=== PATIENT | female | born 1990 | race Two or more races ===

== ENCOUNTER 2024-01-09 21:43 | Emergency (ER) | payer OTHER ==
[~2024-01-09] VITALS: Ht 160 cm; Wt 61.2 kg
[~2024-01-09 21:43] MED LIST: CLARITIN-D1 TAB.SR1 PO; INTESTINEX680 MG PO; KEFLEX500 MG PO; PEPCID20 MG PO; PERCOCET 5/3251 TAB PO; PROTONIX40 MG PO; SULFAMETHOXAZOL1 TA6 PO; ULTRACET PO; URIN D.S. TABLE1 TAB PO; XOPENEX0.63 MG/3 IH; ZANTAC300 MG PO
[2024-01-10] MEDS ORDERED: KETOROLAC TROMETHAMINE 60 MG VIAL IM STA (02:16)
[2024-01-10 03:09] LABS: HEMATOCRIT 43.8 % (36.0-45.00); HEMOGLOBIN 15.1 g/dL (12.0-15.00); MEAN CELL VOLUME 93.5 fL (80.00-100.00); MEAN CORPUSCULAR HEMOGLOBIN 32.3 pg (27.00-32.0); MEAN CORPUSCULAR HGB CONC 34.5 g/dl (32.0-36.0); PLATELET COUNT 237 K/uL (150-450); RED BLOOD COUNT 4.68 M/uL (4.00-6.00); RED CELL DISTRIBUTION WIDTH 12.2 % (11.5-14.5)
[2024-01-10 03:27] LABS: PH,URINE 5.5 (5.0-8.0); URINE APPEARANCE Clear; URINE BILIRRUBIN Negative (NEGATIVE); URINE BLOOD Negative; URINE COLOR Yellow; URINE GLUCOSE Negative (NEGATIVE); URINE KETONE 15 (NEGATIVE); URINE LEUKOCYTE Trace; URINE NITRATE Negative; URINE PROTEIN Negative (NEGATIVE)
[2024-01-10 03:28] LABS: URINE BACTERIA 16.3 uL (0.0-1933); URINE EPITHELIAL CELLS 2.4 uL (0.0-38.8); URINE WBC 9.8 uL (0.0-23.2)
[2024-01-10 03:31] LABS: ANION GAP 12 (10.0-20.0); BLOOD UREA NITROGEN 12 mg/dL (7-18); BUN CREA RATIO 15 (7.0-25.0); CALCIUM 10.5 mg/dL (8.5-10.1); CARBON DIOXIDE 25 mEq/L (21-32); CHLORIDE 105 mmol/L (98-107); CREATININE SERUM 0.79 mg/dL (0.55-1.02); GFR 82.82; GLUCOSE FASTING 96 mg/dL (65-100); OSMOLALITY SERUM 277 MOSM/KG (275-295); POTASSIUM 3.41 mEq/L (3.5-5.1); SODIUM 139 mmol/L (136-145)
[2024-01-10 03:39] LABS: URINE CAST 0.15 uL (0.0-1.40); URINE RBC 1.6 uL (0.0-20.8)
[2024-01-10 04:11] LABS: HCG QUANTITATIVE < 1 mUI/mL (1-3)
[2024-01-10] MEDS ORDERED: ORPHENADRINE CITRATE 30 MG/ML AMPUL IV STA (06:49)
[2024-01-10] MEDS ORDERED: CIPROFLOXACIN IN 5 % DEXTROSE 400 MG/200 ML PIGGYBAG IV STA (06:51)
[2024-01-10] MEDS ORDERED: MECLIZINE HCL 25 MG TABLET PO ONE (09:15)
[2024-01-10] MEDS ORDERED: TAMSULOSIN HCL 0.4 MG CAP PO ONE (09:15)
== END 2024-01-10 10:29 | disposition home or self-care (01) ==
LOC: ER 21:45
PROVIDERS: General Practice
DX: N20.1 Calculus of ureter (principal); R35.89 Other polyuria; R10.9 Unspecified abdominal pain

== ENCOUNTER 2024-08-09 07:05 | Day surgery (SDC) | payer OTHER ==
[2024-08-01 15:05] LABS: BASO % 0.6 % (0.1-1.2); EOS # 0.10 (0.04-0.54); EOS % 1.6 % (0.7-7.0); LYMPH # 1.74 (1.18-3.74); LYMPH % 27.1 % (19.3-53.1); MEAN PLATELET VOLUME 12.50 fl (9.4-12.4); MONO # 0.42 (0.24-0.82); MONO % 6.6 % (4.7-12.5); NEUT # 4.10 (1.56-6.13); NEUT % 63.9 % (34.0-71.1); RED CELL DISTRIBUTION WIDTH 11.9 % (11.6-14.4)
[2024-08-01 15:07] LABS: URINE APPEARANCE Clear; URINE BACTERIA 22.0 uL (0.0-1933); URINE BILIRRUBIN Negative (NEGATIVE); URINE BLOOD Negative; URINE COLOR Yellow; URINE EPITHELIAL CELLS 3.3 uL (0.0-38.8); URINE GLUCOSE Negative (NEGATIVE); URINE KETONE Trace (NEGATIVE); URINE LEUKOCYTE Negative; URINE NITRATE Negative; URINE PROTEIN Negative (NEGATIVE); URINE UROBILINOGEN 0.2 E.U./dl; URINE WBC 4.4 uL (0.0-23.2)
[2024-08-01 15:29] LABS: INR 0.98
[2024-08-01 15:35] LABS: URINE CAST 0.14 uL (0.0-1.40); URINE RBC 1.0 uL (0.0-20.8)
[2024-08-01 15:49] LABS: ALT/SGPT 20.0 U/L (12-78); AST/SGOT 12.0 U/L (15-37); BILIRUBIN TOTAL 1.01 mg/dL (0.3-1.2); BUN CREA RATIO 15.0 (7.0-25.0); CREATININE SERUM 0.61 mg/dL (0.55-1.02); GFR 111.61; GLOBULINA 3.1 G/DL (2.4-3.5); GLUCOSE FASTING 90.0 mg/dL (65-100); OSMOLALITY SERUM 281.0 MOSM/KG (275-295)
[2024-08-09] MEDS ORDERED: CEFAZOLIN SODIUM 1,000 MG VIAL IV ONE (13:45)
== END 2024-08-09 16:50 | disposition home or self-care (01) ==
LOC: CIR.AMB 07:05
PROVIDERS: ATTEND Surgery Surgery of the Hand
DX: M67.441 Ganglion, right hand (principal); D21.11 Benign neoplasm of connective and other soft tissue of right upper limb, including shoulder